=== PATIENT | female | born 1960 | race Caucasian/White ===

== ENCOUNTER 2016-10-08 09:03 | Emergency (ER) | payer OTHER ==
[2016-10-08 09:13] VITALS: TEMP 97.7
[2016-10-08] MEDS ORDERED: NS 1,000 ML IV ONE (09:35)
--- NOTE | 2016-10-08 09:50 | EDPHY ---
H & P Stated Complaint: Swollen lip/abcess, got abx x2 outpt. Source: Patient, RN/MD Exam Limitations: No limitations - Social History Smoking Status: Former smoker HPI/ROS: CHIEF COMPLAINT: Facial abscess, sent from outside facility HISTORY OF PRESENT ILLNESS: Patient complains of right-sided facial/lip abscess started on . This was mild at 1st and steadily worsened. Constant duration. Moderately painful. There has been some drainage from the right nasal passage. No fever or chills. No headache. No visual disturbance. No redness around the eye. She was started on antibiotics back home in [place] on . This was Bactrim, 1 pill twice daily. She continue this until yesterday. Yesterday she was seen in [place] by Dr. Kothari. She was treated with 1 dose of IV clindamycin last night and again this morning. She seems to be refractory to this, thus they sent her to our facility for higher level of care. No other associated complaints or modifying factors. REVIEW OF SYSTEMS: Ten systems reviewed and are negative unless otherwise noted in the HPI PAST MEDICAL HISTORY: Hysterectomy on estradiol. No diabetes SOCIAL HISTORY: Nonsmoker. She is visiting from [place] for the week. FAMILY HISTORY: Noncontributory EXAMINATION General Appearance: Alert, no distress Head: normocephalic, atraumatic Eyes: Pupils equal and round, no conjunctival pallor or injection ENT, Mouth: Mucous membranes moist. There is palpable induration and erythema to the right upper lip. This extends into the right nasal passage. There is no fluctuance. There is some erythema of the area. Airway is widely patent. Uvula midline. Neck: Normal inspection, supple, non-tender Respiratory: Lungs are clear to auscultation. No wheezing, rhonchi or crackles Cardiovascular: Regular rate and rhythm. No murmur. Pulses intact distally Gastrointestinal: Abdomen is soft and nontender Neurological: A&O, nonfocal, normal gait Skin: Warm and dry, no rash Extremities: Nontender, no pedal edema Psychiatric: Mood and affect normal DIFFERENTIAL DIAGNOSES: Including but not limited to facial abscess, cellulitis, nasal abscess, oral abscess, mucositis MDM: 9:30 a.m. Right-sided nasal/facial abscess. There is no evidence of periorbital cellulitis or orbital cellulitis. She has been on Bactrim outpatient and clindamycin IV x2 doses. She has had no improvement in her symptoms. Sent here by on-site physician with discussion prior to arrival. CT scan has been ordered as well as blood cultures and laboratory studies. She is resting comfortably in no acute distress. She is NPO solids since last night. Liquids as of this morning. 10:10 a.m. I have re-evaluated the patient. She is resting comfortably minimal pain. Serum creatinine is within normal limits and CBC is pending. Blood cultures have been obtained. CT scan is pending at this time. 11:20 a.m. I discussed case with radiologist Dr. Keller. CT scan findings as documented. I will consult ENT, surgery and Infectious Disease 11:35 a.m. I discussed the case with Dr. Villanueva. He says that he is happy to assist with the care of this patient but recommends that we attempt to consult Ear Nose and Throat 1st given the location of the possible abscess. 11:45 a.m. I have discussed the case with ENT AYDEN Marshall. She will come evaluate the patient emergency department 11:55 a.m. I have also discussed the case with Dr. Ortiz, infectious Disease. He recommends clindamycin or Bactrim for suspected staff coverage should this be a nasal vestibulitis. He recommends that we evaluate for the possibility of HSV. I have evaluated the patient with this and I do not see any vesicular lesions or lesions that would be consistent with HSV or herpetic lesions of the mouth or lips. 12:00 p.m. Case discussed with Dr. Hartman. He will examine the patient. 12:45 p.m. Patient has been evaluated by AYDEN Marshall. She has performed incision and drainage. Please see her note for details. She recommends the patient be switched to p.o. Bactrim twice daily is where as steroid treatment for 4 days. She would like the patient to follow-up in her office tomorrow should she not improve. She informs the patient does not have to follow up there tomorrow if she is improving. 1:20 p.m. I have re-evaluated the patient. She is resting comfortably. We will proceed with vancomycin and steroid administration here and then discharged home with oral medications as discussed. She is comfortable this plan. She will be discharged home stable condition following the vancomycin and Decadron effusions. SUPERVISION: Patient was evaluated in conjunction with the supervising physician. Please see their note for details. (Madhu Sam) Constitutional: Initial Vital Signs Temperature (C) 97.7 F 10/08/16 09:09 Heart Rate 70 10/08/16 09:09 Respiratory Rate 20 10/08/16 09:09 Blood Pressure 119/68 10/08/16 09:09 O2 Sat (%) 99 10/08/16 09:09 O2 Delivery Mode Room Air Allergies/Adverse Reactions: penicillin G Allergy (Verified 10/08/16 09:05) Home Medications: Medication Instructions Recorded Clindamycin 10/08/16 Estradiol Transdermal Patch 10/08/16 Sulfamethox/Tmp 800/160 mg 2 tab PO BID 10 Days 10/08/16 [Bactrim Ds] oxyCODONE HCL/ACETAMINOPHEN 1 each PO Q4-6PRN PRN #20 tablet 10/08/16 [Percocet 5-325 mg Tablet] predniSONE [Deltasone] 60 mg PO DAILY #12 tablet 10/08/16 Medical Decision Making - Diagnostics Imaging Results: Imaging Impressions Face CT 10/08/16 09:35 Impression: 1. Small loculated abscess versus phlegmon that extends from the anterior right upper lip superiorly to the right side of the inferior nasal septum. Findings discussed with Madhu Sam PAC at 11:20 hour, 10/08/2016. ED Course/Re-evaluation: The patient was evaluated and managed by the physician's licensed occupational therapy assistant. My cosignature indicates that I reviewed the chart and I agree with the findings and plan of care as documented. I am the secondary supervising physician. ( Saranya Hartman) - Data Points Laboratory Results: Laboratory Results 10/08/16 10:03 10/08/16 10/08/16 10/08/16 10:03 10:03 10:03 WBC 8.78 10^3/uL 10^3/uL (3.80-9.50) RBC 3.23 10^6/uL L 10^6/uL (4.18-5.33) Hgb 10.2 g/dL L g/dL (12.6-16.3) POC Hgb Hct 29.4 % L % (38.0-47.0) POC Hct MCV 91.0 fL fL (81.5-99.8) MCH 31.6 pg pg (27.9-34.1) MCHC 34.7 g/dL g/dL (32.4-36.7) RDW 13.4 % % (11.5-15.2) Plt Count 175 10^3/uL 10^3/uL (150-400) MPV 10.9 fL fL (8.7-11.7) Neut % (Auto) 75.2 % H % (39.3-74.2) Lymph % (Auto) 14.4 % L % (15.0-45.0) [place] % (Auto) 9.7 % % (4.5-13.0) Eos % (Auto) 0.2 % L % (0.6-7.6) Baso % (Auto) 0.2 % L % (0.3-1.7) Nucleat RBC Rel Count 0.0 % % (0.0-0.2) Absolute Neuts (auto) 6.60 10^3/uL H 10^3/uL (1.70-6.50) Absolute Lymphs (auto) 1.26 10^3/uL 10^3/uL (1.00-3.00) Absolute Monos (auto) 0.85 10^3/uL H 10^3/uL (0.30-0.80) Absolute Eos (auto) 0.02 10^3/uL L 10^3/uL (0.03-0.40) Absolute Basos (auto) 0.02 10^3/uL 10^3/uL (0.02-0.10) Absolute Nucleated RBC 0.00 10^3/uL 10^3/uL (0-0.01) Immature Gran % 0.3 % % (0.0-1.1) Immature Gran # 0.03 10^3/uL 10^3/uL (0.00-0.10) ESR PT 14.2 SEC SEC (12.0-15.0) INR 1.11 (0.83-1.16) APTT 29.9 SEC SEC (23.0-38.0) POC Sodium POC Potassium POC Chloride POC BUN POC Creatinine POC Glucose C-Reactive Protein 72.3 mg/L H mg/L (<10.0) 10/08/16 10/08/16 10:00 09:59 WBC RBC Hgb POC Hgb 10.5 gm/dL L gm/dL (12.6-16.3) Hct 29.3 % L % (38.0-47.0) POC Hct 31 % L % (38-47) MCV MCH MCHC RDW Plt Count MPV Neut % (Auto) Lymph % (Auto) [place] % (Auto) Eos % (Auto) Baso % (Auto) Nucleat RBC Rel Count Absolute Neuts (auto) Absolute Lymphs (auto) Absolute Monos (auto) Absolute Eos (auto) Absolute Basos (auto) Absolute Nucleated RBC Immature Gran % Immature Gran # ESR 51 MM/HR H MM/HR (0-30) PT INR APTT POC Sodium 136 mEq/L mEq/L (134-144) POC Potassium 4.2 mEq/L mEq/L (3.3-5.0) POC Chloride 102 mEq/L mEq/L (97-110) POC BUN 15 mg/dL mg/dL (7-23) POC Creatinine 0.7 mg/dL mg/dL (0.6-1.0) POC Glucose 79 mg/dL mg/dL (70-100) C-Reactive Protein Medications Given: Discontinued Medications Dexamethasone (Decadron Injection) 10 mg IVP EDNOW ONE Stop: 10/08/16 13:30 Last Admin: 10/08/16 14:00 Dose: 10 mg Hydromorphone HCl (Dilaudid) 0.5 mg IVP EDNOW ONE Stop: 10/08/16 12:28 Last Admin: 10/08/16 12:29 Dose: 0.5 mg Sodium Chloride (Ns) 1,000 mls @ 0 mls/hr IV ONCE ONE; Wide Open PRN Reason: Protocol Stop: 10/08/16 09:36 Last Admin: 10/08/16 10:10 Dose: 1,000 mls Vancomycin/Sodium Chloride (Vancomycin 1 Gm (Premix)) 250 mls @ 250 mls/hr IV EDNOW ONE PRN Reason: Protocol Stop: 10/08/16 14:24 Last Admin: 10/08/16 14:03 Dose: 250 mls Ketorolac Tromethamine (Toradol) 15 mg IVP EDNOW ONE Stop: 10/08/16 12:29 Last Admin: 10/08/16 12:29 Dose: 15 mg Morphine Sulfate (Morphine) 4 mg IVP EDNOW ONE Stop: 10/08/16 09:36 Last Admin: 10/08/16 10:10 Dose: 2 mg Point of Care Test Results: 10/08/16 09:59 POC Sodium 136 POC Potassium 4.2 POC Chloride 102 POC BUN 15 POC Creatinine 0.7 POC Glucose 79 Departure - Departure Disposition: Home, Routine, Self-Care Clinical Impression: Lip abscess Condition: Good Instructions: Abscess (ED) Additional Instructions: 1. Switch to Bactrim 2 pills by mouth twice daily for 10 days 2. Steroids as prescribed 3. Short course of pain medication as needed 4. Continue to ice the area for the remainder of the day 5. Follow up with ENT tomorrow in their office 6. Return to the ER for any worsening symptoms, fever, chills Referrals: JAMES BEE [Other] - As per Instructions Rocky Blanco MD [Medical Doctor] - As per Instructions Prescriptions: oxyCODONE HCL/ACETAMINOPHEN [Percocet 5-325 mg Tablet] 1 each PO Q4-6PRN PRN # 20 tablet PRN Reason: Pain, Breakthrough predniSONE [Deltasone] 60 mg PO DAILY #12 tablet Sulfamethox/Tmp 800/160 mg [Bactrim Ds] 2 tab PO BID 10 Days
[2016-10-08 10:09] LABS: % IMMATURE GRANULYOCYTES 0.3 % (0.0-1.1); ABSOLUTE IMMATURE GRANULOCYTES 0.03 10^3/uL (0.00-0.10); ADD DIFF? NO; ADD MORPH? NO; ADD SCAN? NO; ATYPICAL LYMPHOCYTE FLAG 0 (0-99); FRAGMENT RBC FLAG 0 (0-99); HEMATOCRIT 29.4 % (38.0-47.0); HEMOGLOBIN 10.2 g/dL (12.6-16.3); LEFT SHIFT FLG 0 (0-99); LIPEMIA HEMOLYSIS FLAG 90 (0-99); MEAN CELL HEMOGLOBIN 31.6 pg (27.9-34.1); MEAN CELL HEMOGLOBIN CONCENTR. 34.7 g/dL (32.4-36.7); MEAN PLATELET VOLUME 10.9 fL (8.7-11.7); PLATELET CLUMPS FLAG 0 (0-99); PLATELET COUNT 175 10^3/uL (150-400); RED BLOOD CELL COUNT 3.23 10^6/uL (4.18-5.33); RED CELL DISTRIBUTION WIDTH 13.4 % (11.5-15.2)
[2016-10-08] MEDS ORDERED: IOPAMIDOL (ISOVUE-300) 100 ML BTL ONE (10:21)
[2016-10-08 10:28] LABS: INR 1.11 (0.83-1.16); PROTIME(PATIENT) 14.2 SEC (12.0-15.0)
[2016-10-08 10:29] LABS: APTT 29.9 SEC (23.0-38.0)
[2016-10-08 11:56] LABS: HEMATOCRIT 29.3 % (38.0-47.0)
[2016-10-08] MEDS ORDERED: HYDROmorphONE/DILAUDID 1 MG/ML SYR ONE (12:12)
[2016-10-08] MEDS ORDERED: KETOROLAC 15 MG/1 ML SDV ONE (12:13)
[2016-10-08] MEDS ORDERED: HYDROmorphONE/DILAUDID 1 MG/ML SYR IVP ONE (12:27)
[2016-10-08] MEDS ORDERED: KETOROLAC 15 MG/1 ML SDV IVP ONE (12:28)
[2016-10-08] MEDS ORDERED: VANCOMYCIN HCL/NORMAL SALINE 250 ML IV ONE (13:25)
[2016-10-08] MEDS ORDERED: DEXAMETHASONE 10 MG/ML VIAL IVP ONE (13:29)
[2016-10-08 14:04] VITALS: RESP 16
--- NOTE | 2016-10-08 14:15 | GHP ---
[f rep st] PREOP HISTORY AND PHYSICAL DATE OF ADMISSION: 10/08/2016 HISTORY OF PRESENT ILLNESS: The patient is a 56-year-old female, who is visiting here from out of t own. She states that on Sunday, she began with a little bit of swelling in her right nostril; this eventually progressed. Upon arriving here, she began with significant right-sided lip swelling . She went to an emergency room yesterday, where she received IV clindamycin, no Decadron as far as I can tell. The lip has continued to worsen. When she arrived here, a CAT scan was performed and they noted two 1 cm possible abscess/phlegmon in the right upper lip area. The patient notes no fev ers. ALLERGIES: Penicillin. PAST SURGICAL HISTORY: Significant for appendectomy, and a hysterectomy, and a laparoscopic surgery for an ectopic . PAST MEDICAL HISTORY: None. PHYSICAL EXAMINATION: GENERAL: Patient is alert and oriented, sitting upright in bed. HEENT: Hea d atraumatic, normocephalic. Ears clear. Nose: On the right medial caudal septum, she has a 1 cm inflamed area of swelling, with a small scab. Her oral cavity and pharynx, her right upper lip with marked edema. Palpation reveals multiple small loculations of fluctuance. NECK: Supple. PROCEDURE: The nose was first injected with lidocaine plus epinephrine. Using a #15 blade, an atte mpted I and D was made on this, however, did not produce much purulence. I then put my attention to her upper lip. Two areas of fluctuance were then I and D, and more significant purulence was expre ssed. The patient tolerated this well, with mild bleeding. ASSESSMENT AND PLAN: The patient with an upper lip cellulitis/abscess, resulting from an original i nfection from a nasal vestibulitis. She is currently on clindamycin and we will switch her over to Bactrim. We will get her a dose of IV medication with staph coverage before she leaves. We also pl aced her on some Decadron to help with the swelling. The patient will be in town for a few days; if she is not improving, she will return to the office to see us tomorrow. /[id number]/MODL
[2016-10-08 15:44] VITALS: BP 112/67; PULSE 86; O2SAT 95
== END 2016-10-08 15:43 | disposition home or self-care (01) ==
DX: K13.0 Diseases of lips (principal); R79.1 Abnormal coagulation profile; Z87.891 Personal history of nicotine dependence
CPT/HCPCS: 82947-QW; 96365; J1100; J1170; J1885; J3370; Q9967